=== PATIENT | female | born 1955 | race Two or more races ===

== ENCOUNTER 2024-02-05 15:02 | Outpatient (RCR) | payer MEDICARE, OTHER, SELFPAY | END 2024-02-05 23:59 | disposition home or self-care (01) | LOC: RPT 15:02 | PROVIDERS: ATTENDING PHYSICIAN Nurse Practitioner | DX: M25.511 Pain in right shoulder (principal); S46.011D Strain of muscle(s) and tendon(s) of the rotator cuff of right shoulder, subsequent encounter; Z73.6 Limitation of activities due to disability | CPT/HCPCS: 97010; 97110; 97140; 97162 ==

== ENCOUNTER 2024-03-05 16:12 | Outpatient (RCR) | payer MEDICARE, OTHER, SELFPAY | END 2024-03-05 23:59 | disposition home or self-care (01) | LOC: RPT 16:12 | PROVIDERS: ATTENDING PHYSICIAN Nurse Practitioner | DX: M25.511 Pain in right shoulder (principal); S46.011D Strain of muscle(s) and tendon(s) of the rotator cuff of right shoulder, subsequent encounter; Z73.6 Limitation of activities due to disability | CPT/HCPCS: 97010; 97110; 97140 ==

== ENCOUNTER 2024-03-11 14:10 | Outpatient (RCR) | payer MEDICARE, OTHER, SELFPAY | END 2024-03-11 23:59 | disposition home or self-care (01) | LOC: RPT 14:10 | PROVIDERS: ATTENDING PHYSICIAN Nurse Practitioner | DX: M25.511 Pain in right shoulder (principal); S46.011D Strain of muscle(s) and tendon(s) of the rotator cuff of right shoulder, subsequent encounter; Z73.6 Limitation of activities due to disability | CPT/HCPCS: 97010; 97110; 97140 ==

== ENCOUNTER → 2024-11-07 12:50 | Outpatient (REF) | payer MEDICARE, OTHER, SELFPAY | LOC: HWWDC 12:50 | PROVIDERS: ATTENDING PHYSICIAN Nurse Practitioner; FAMILY PHYSICIAN Internal Medicine | DX: Z12.31 Encounter for screening mammogram for malignant neoplasm of breast (principal); M89.9 Disorder of bone, unspecified; Z78.0 Asymptomatic menopausal state | CPT/HCPCS: 77063; 77067; 77080 ==